=== PATIENT | female | born 1955 | race Caucasian/White ===

== ENCOUNTER 2020-08-24 11:51 | Observation (INO) ==
[2020-08-24 12:36] LABS: Basophils % 0.1 %; Eosinophils % 0.1 %; Hemoglobin 11.9 g/dL (11.5-15.4); Immature Granulocytes % 0.4 % (0-4); Lymphocytes # 0.9 K/mcL (0.6-4.6); Lymphocytes % 8.1 %; Mean Corpuscular HGB Conc 33.1 g/dL (31.6-35.5); Mean Corpuscular Hemoglobin 30.8 pg (28.0-33.3); Mean Corpuscular Volume 93.3 fL (83.0-100.0); Mean Platelet Volume 10.1 fL (9.4-12.4); Monocytes # 0.6 K/mcL (0.0-1.3); Monocytes % 5.4 %; Neutrophils # 9.2 K/mcL (1.6-8.9); Platelet Count 191 K/mcL (140-400); Red Blood Count 3.86 M/mcL (3.82-4.97); Red Cell Distribution Width 12.9 % (11.5-14.5); Segmented Neutrophils % 85.9 %
[2020-08-24 12:37] LABS: White Blood Count 10.7 K/mcL (4.3-11.1)
[2020-08-24 12:43] LABS: INR 1.1; Prothrombin Time 12.7 Seconds (9.4-12.1)
[2020-08-24 12:55] LABS: BUN/Creatinine Ratio 14 (6-26); Blood Urea Nitrogen 11 mg/dL (8-23); Calcium 9.7 mg/dL (8.6-10.3); Carbon Dioxide 26 mEq/L (23-29); Chloride 103 mEq/L (98-107); Glucose 115 mg/dL (70-105); Osmolality,Calculated 286 (280-300); Potassium 4.3 mEq/L (3.5-5.1); Sodium 138 mEq/L (136-145); Troponin I < 0.03 ng/mL (< 0.04); eGFR For African Americans > 60 (> 60); eGFR For Non-African Americans > 60 (> 60)
[2020-08-24] MEDS ORDERED: *HR* OxyCODONE Immed Rel 5 MG TABLET PO PRN (15:35)
[2020-08-24] MEDS ORDERED: *HR* HYDROcodone/Acet 5/325 mg TABLET PO PRN (15:35)
[2020-08-24] MEDS ORDERED: Melatonin 3 MG TABLET PO PRN (15:35)
[2020-08-24] MEDS ORDERED: Naloxone 0.4 MG/ML INJ IVP PRN (15:35)
[2020-08-24] MEDS ORDERED: Ondansetron ODT 4 MG TAB.RAPDIS SL PRN (15:35)
[2020-08-24] MEDS ORDERED: Ibuprofen 400 MG TABLET PO PRN (15:35)
[2020-08-24] MEDS ORDERED: Albuterol 2.5 MG/3 ML NEBULIZER IH PRN (15:37)
[2020-08-24] MEDS ORDERED: Nicotine 14 MG PATCH.TD24 TD SCH (17:00)
[2020-08-24] MEDS: Budesonide/Formoterol 80/4.5 1 PUFF INH IH SCH ×2 (17:08→20:31)
[2020-08-24] MEDS: Nicotine 21 MG PATCH.TD24 TD SCH (18:01)
[2020-08-24] MEDS ORDERED: *HR* LORazepam 0.5 MG TABLET PO PRN (20:32)
[2020-08-25 06:16] LABS: Basophils % 0.3 %; Eosinophils # 0.1 K/mcL (0.0-0.6); Eosinophils % 1.8 %; Hematocrit 35.6 % (35.3-44.9); Hemoglobin 11.6 g/dL (11.5-15.4); Immature Granulocytes % 0.3 % (0-4); Lymphocytes # 1.1 K/mcL (0.6-4.6); Lymphocytes % 17.8 %; Mean Corpuscular HGB Conc 32.6 g/dL (31.6-35.5); Mean Corpuscular Hemoglobin 30.6 pg (28.0-33.3); Mean Corpuscular Volume 93.9 fL (83.0-100.0); Mean Platelet Volume 10.3 fL (9.4-12.4); Monocytes # 0.3 K/mcL (0.0-1.3); Monocytes % 5.2 %; Neutrophils # 4.5 K/mcL (1.6-8.9); Platelet Count 152 K/mcL (140-400); Red Blood Count 3.79 M/mcL (3.82-4.97); Red Cell Distribution Width 13.1 % (11.5-14.5); Segmented Neutrophils % 74.6 %
[2020-08-25 07:01] LABS: Alanine Aminotransferase 15 Units/L (7-52); Albumin 3.8 g/dL (3.5-5.7); Albumin/Globulin Ratio 1.7 (1.1-2.2); Alkaline Phosphatase 70 Units/L (34-104); Aspartate Amino Transferase 24 Units/L (13-39); BUN/Creatinine Ratio 13 (6-26); Bilirubin,Total 0.4 mg/dL (0.3-1.0); Blood Urea Nitrogen 11 mg/dL (8-23); Calcium 9.4 mg/dL (8.6-10.3); Carbon Dioxide 27 mEq/L (23-29); Chloride 104 mEq/L (98-107); Globulin 2.3 g/dL (2.4-3.5); Glucose 112 mg/dL (70-105); Osmolality,Calculated 288 (280-300); Potassium 4.2 mEq/L (3.5-5.1); Sodium 139 mEq/L (136-145); Total Protein 6.1 g/dL (6.4-8.9); eGFR For African Americans > 60 (> 60); eGFR For Non-African Americans > 60 (> 60)
[2020-08-25 07:44] VITALS: BP 124/72
[2020-08-25] MEDS: Nicotine 21 MG PATCH.TD24 TD SCH (08:00)
[2020-08-25] MEDS ORDERED: Morphine Sulfate 2 MG/ML SYRINGE IVP ONE (09:03)
[2020-08-25] MEDS ORDERED: *HR* LORazepam 2 MG/ML VIAL IVP ONE (09:03)
[2020-08-25] MEDS: Budesonide/Formoterol 80/4.5 1 PUFF INH IH SCH (10:34)
[2020-08-25 11:09] LABS: Basophils,Pleural Fluid 0 %; Eosinophils,Pleural Fluid 0 %; Total Protein,Pleural Fluid 3.7 g/dL
[2020-08-25 11:13] LABS: Appearance of Pleural Fl Clear (Clear)
[2020-08-25 11:16] LABS: Lactate Dehydrogenase 196 Units/L (140-271)
[2020-08-25 11:21] LABS: RBC,Pleural Fluid < 2000 RBC/mcL
[2020-08-26 10:47] LABS: Fluid Source for Cholesterol PLEURAL FLUID; Fluid Source for Triglycerides PLEURAL FLUID
[2020-08-26 13:21] LABS: Cholesterol,Body Fluid 67 mg/dL; Triglycerides,Body Fluid 27 mg/dL
== END 2020-08-25 13:12 | disposition home or self-care (01) ==
LOC: 3ANU 11:51 → EMEROOARM 11:51 → 3ANU 16:34
PROVIDERS: ADMIT Internal Medicine; ATTEND Internal Medicine